=== PATIENT | male | born 1985 | race Two or more races ===

== ENCOUNTER 2024-03-30 22:46 | Emergency (ER) | payer MEDICAID, OTHER ==
[~2024-03-30] VITALS: Ht 188 cm; Wt 84.0 kg
[2024-03-31] MEDS ORDERED: ONDANSETRON HCL 4 MG/2 ML VIAL IV ONE (02:00)
[2024-03-31] MEDS ORDERED: MORPHINE SULFATE 4 MG/ML SYR/VIAL IV ONE (02:00)
[2024-03-31] MEDS: SILVER SULFADIAZINE 1 % TOPICAL CREAM 50GM TOP ONE (02:15)
[2024-03-31] MEDS: MORPHINE SULFATE 4 MG/ML SYR/VIAL IM ONE (02:29)
[2024-03-31] MEDS: ONDANSETRON HCL 4 MG/2 ML VIAL IM ONE (02:30)
[2024-03-31] MEDS: ONDANSETRON HCL 4 MG/2 ML VIAL IV ONE (03:00)
[2024-03-31] MEDS: HYDROmorphone HCL 2 MG/ML VL/or syr IV ONE (03:00)
[2024-03-31 03:11] VITALS: PULSE 69; RESP 13; O2SAT 98
[2024-03-31 03:41] VITALS: BP 130/80; PULSE 70; RESP 16; TEMP 97.6; O2SAT 97
== END 2024-03-31 04:01 | disposition short-term general hospital (02) ==
LOC: ER 22:46
DX: T21.26XA Burn of second degree of male genital region, initial encounter (principal); X08.8XXA Exposure to other specified smoke, fire and flames, initial encounter; Y93.89 Activity, other specified; Y92.89 Other specified places as the place of occurrence of the external cause; Y99.8 Other external cause status
CPT/HCPCS: 96372; 99285; J2270; J2405